=== PATIENT | female | born 1970 | race Caucasian/White ===

== ENCOUNTER 2016-09-08 17:07 | Emergency (ER) | payer OTHER ==
[2016-09-08 17:19] VITALS: BP 102/81; PULSE 95; RESP 16; TEMP 98.6; O2SAT 97
--- NOTE | 2016-09-08 18:14 | EDPHY ---
H & P Time Seen by Provider: 09/08/16 18:00 HPI/ROS: CHIEF COMPLAINT: Rash HISTORY OF PRESENT ILLNESS: 45-year-old female presents to the emergency department by private vehicle complaining of erythematous, pruritic rash to bilateral axilla for the last 2 weeks. She states that she has had problems with sensitive skin in the past. She has been diagnosed with eczema. She developed a rash to her breast which she has had intermittently for many months to years. She tried topical steroid cream. She describes the rash under her arms is very itchy and burning. She denies chest pain or difficulty breathing. No fevers or chills. ROS: Denies fevers, chills, chest pain or difficulty breathing. Past Medical/Surgical History: Eczema, zoster, white matter lesions Social History: Single and lives in [place] Smoking Status: Never smoked Physical Exam: On examination the patient has erythema noted to bilateral axilla worse on the left than the right. There is central clearing noted with scaling. Appears consistent with tinea. No vesicular lesions noted. No signs of cellulitis. Not warm to the touch. Nontender to palpate. Full range of motion of her upper extremities. There is also a dry, scaly appearing rash to the anterior aspect of both breasts. Again no evidence of cellulitis or vesicular lesions. Rash is not appreciated elsewhere. Constitutional: Initial Vital Signs Temperature (C) 37.0 C 09/08/16 17:14 Heart Rate 95 09/08/16 17:14 Respiratory Rate 16 09/08/16 17:14 Blood Pressure 102/81 H 09/08/16 17:14 O2 Sat (%) 97 09/08/16 17:14 O2 Delivery Mode Room Air Allergies/Adverse Reactions: cat dander Allergy (Unknown, Verified 09/08/16 17:19) mold Allergy (Unknown, Verified 09/08/16 17:19) Home Medications: Medication Instructions Recorded Effexor 09/08/16 Fluconazole [Diflucan (*)] 150 mg PO ONCE #1 tab 09/08/16 MDM/Departure - [facility] ED Course/Re-evaluation: Clinically I think this patient has tinea corporis. She will be treated with [id number] topical clotrimazole 1% cream twice daily for 1 week. She was also encouraged to use Aquaphor. She was discouraged from using any kind of steroid cream. I do not think oral steroids are indicated. She was also given dermatologic referral if her symptoms did not improve. I do not think IV medication is indicated. I did explain that if any skin scraping would need to be done this would be done by the constitutional law professor in not in the emergency department. I did not think wound cultures are indicated. This was discussed with the patient who verbalized understanding and agreed. - Depart Disposition: Home, Routine, Self-Care Clinical Impression: Tinea corporis Condition: Good Instructions: Tinea Corporis (ED) Additional Instructions: Topical 1% clortrimazole twice daily for one week under your arms. Apply Aquafore as discussed 2-3 times daily for 7 days. Return if you develop fever, blistering rash, or if you feel worse in any way. Diflucan daily x1 dose. Try not to itch the rash as this may cause possible spreading, more itching, or possibly introduce infection. Prescriptions: Fluconazole [Diflucan (*)] 150 mg PO ONCE #1 tab Referrals: Ford Sahu MD [Medical Doctor] - As per Instructions (Area Intelligence Technician at [facility])
== END 2016-09-08 18:40 | disposition home or self-care (01) ==
DX: B35.4 Tinea corporis (principal)

== ENCOUNTER → 2016-11-07 | Outpatient (CLI) | payer OTHER | LOC: BMCIMAGING 17:11 | PROVIDERS: ATTEND Emergency Medicine | DX: S91.312A Laceration without foreign body, left foot, initial encounter (principal); W22.8XXA Striking against or struck by other objects, initial encounter ==